=== PATIENT | female | born 1945 | race Caucasian/White ===

== ENCOUNTER 2024-11-03 14:38 | Emergency (ER) | payer OTHER ==
[~2024-11-03] VITALS: Ht 157.5 cm; Wt 85.4 kg
[2024-11-03] MEDS ORDERED: ketorolac trometh 15mg/ml vial 15 MG/ML ML IM ONE (16:00)
[2024-11-03] MEDS: cyclobenzaprine 10mg tablet PO ONE (16:04)
[2024-11-03] MEDS: ketorolac trometh 30MG/ML vial 30 MG/ML VIAL IM ONE (16:12)
[2024-11-03 16:23] LABS: BASOPHILS % (AUTO) 0.8 % (0-1); EOSINOPHILS # (AUTO) 0.1 X10'3 (0-0.9); EOSINOPHILS % (AUTO) 1.9 % (0-6); HEMATOCRIT 41.4 % (35.0-45.0); HEMOGLOBIN 13.6 g/dl (12.0-16.0); LYMPHOCYTES % (AUTO) 37.4 % (21-51); MEAN CORPUSCULAR HEMOGLOBIN 29.8 PG (27.0-31.0); MEAN CORPUSCULAR HGB CONC 32.9 g/dL (33.0-36.5); MEAN CORPUSCULAR VOLUME 90.5 FL (78-98); MEAN PLATELET VOLUME 7.7 FL (7.4-10.4); MONOCYTES # (AUTO) 0.7 X10'3 (0-0.9); MONOCYTES % (AUTO) 12.3 % (2-12); NEUTROPHILS # (AUTO) 2.5 X10'3 (1.8-7.7); NEUTROPHILS % (AUTO) 47.6 % (42-75); PLATELET COUNT 226 X10'3 (140-440); RED BLOOD COUNT 4.58 X10'6 (4.20-5.60); WHITE BLOOD COUNT 5.3 X10'3 (4.5-11.0)
--- NOTE | 2024-11-03 16:30 | RADIOLOGY REPORT ---
CHEST RADIOGRAPH Indication: Right chest wall pain Technique: Single frontal view of the chest was obtained Comparison: None FINDINGS: Lines and Tubes: None Lungs: No focal consolidation. Pleura: No effusion. No pneumothorax. Cardiomediastinal contours: Unremarkable Bones: No acute osseous abnormality. IMPRESSION: 1. No acute cardiopulmonary disease.
[2024-11-03 16:39] LABS: D-DIMER 1.12 MG/L FEU (0-0.50)
--- NOTE | 2024-11-03 16:52 | Physician Documentation ---
History of Present Illness ~ Chief Complaint: Rib pain Stated Complaint: PAIN UNDER R SHOULDER BLADE Time Seen by MD: 15:20 OK to notify your PCP?: Yes Source: patient Mode of Arrival: POV Exam Limitations: no limitations HPI This is a 78-year-old female who comes in for pain of her right mid back beneath the shoulder blade that is started a couple of days ago. The patient was visiting here from [place] and states that is two weeks ago she had a 48 hour flight from [place] to this area. She states that is she took one blood thinner prior to the flight because she has had clots in the past and wore compression stockings during the flight. She was not complaining of pain or swelling of the legs. She denies any known injury to the chest wall though she states that is she was pulling herself up into a trailer the couple of days ago not long before this pain began. The pain has a sharp stabbing pain in the right mid back that has worse with deep inspiration movement of the trunk. She denies hemoptysis. She denies significant shortness of breath and states the pain is very positional. She said she gets sharp spasm pain at times and says the pain in his currently 7/10 Tetanus within 5 Years?: No Allergies: Coded Allergies: No Known Allergies (Unverified , 11/03/24) Active Prescriptions See Medication Reconciliation Form. Physical Exam Vital Signs: Temperature: 98.0, Heart Rate: 75, Respiratory Rate: 16, BP: 169/78, Pulse Oximetry: 99, Weight: 85.400 Pulse Oximetry Reflects: adequate oxygenation General Appearance: alert, WD/WN, mild distress (The patient was in mild distress as she gets frequent spasms with the right mid back which she guards.) Cardiovascular No rubs, gallops or murmurs. No peripheral edema, cyanosis or clubbing of the extremities Respiratory No increased respiratory effort or retractions. Lungs are clear to auscultation in all white. Skin: normal color, warm/dry Progress Results/Orders Reviewed/noted all lab results: Yes Results/Orders Orders - FARHAD ALMAZAN Chest,Single View (11/03/24 16:17) Saline Lock (11/03/24 ) Cta Chest Pe (11/03/24 17:29) Completed Orders - FARHAD ALMAZAN Cyclobenzaprine Tablet (Flexeril Tablet) (11/03/24 16:00) Chest,Single View (11/03/24 16:17) Cbc/Diff (11/03/24 15:57) D-Dimer (11/03/24 15:57) Ketorolac Trometh 30mg/Ml Vial (Toradol (11/03/24 16:10) BMP (11/03/24 16:41) Cta Chest Pe (11/03/24 17:29) Iohexol 350mg/Ml 100ml (Omnipaque 350mg/ (11/03/24 17:18) Medications Received in ER Medications (Trade) Dose Ordered Sig/Jo-Ann Route PRN Reason Start Time Stop Time Status Last Admin Dose Admin (Flexeril tablet) 10 mg ONCE ONCE PO 11/03/24 16:00 11/03/24 16:01 DC 11/03/24 16:04 10 MG (Toradol inj. 30mg/ml) 30 mg ONCE ONCE IM 11/03/24 16:10 11/03/24 16:11 DC 11/03/24 16:12 30 MG Vital Signs 11/03/24 11/03/24 11/03/24 14:48 16:12 17:51 Temp 98.0 Pulse 75 Resp 16 16 16 B/P (MAP) 169/78 Pulse Ox 99 Laboratory Tests Test 11/03/24 16:11 White Blood Count 5.3 Red Blood Count 4.58 Hemoglobin 13.6 Hematocrit 41.4 Mean Corpuscular Volume 90.5 Mean Corpuscular Hemoglobin 29.8 Mean Corpuscular Hemoglobin Concent 32.9 L Red Cell Distribution Width 14.0 Platelet Count 226 Mean Platelet Volume 7.7 Neutrophils (%) (Auto) 47.6 Lymphocytes (%) (Auto) 37.4 Monocytes (%) (Auto) 12.3 H Eosinophils (%) (Auto) 1.9 Basophils (%) (Auto) 0.8 Neutrophils # (Auto) 2.5 Lymphocytes # (Auto) 2.0 Monocytes # (Auto) 0.7 Eosinophils # (Auto) 0.1 Basophils # (Auto) 0.0 CBC Comment D-Dimer 1.12 H D-Dimer Comment Sodium Level 144 Potassium Level 3.8 Chloride Level 106 Carbon Dioxide Level 27.0 Anion Gap 11 Blood Urea Nitrogen 22 H Creatinine 0.92 H Estimated GFR/1.73 m2 59 BUN/Creatinine Ratio 23.9 H Glucose Level 116 H Calcium Level 9.5 Albumin 4.1 Chemistry Comments EKG/XRAY/CT/US/VASC/MRI Chest X-Ray : Interpreted By: self Views: 1 VIEW Additional Comments Chest x-ray one view interpreted by me: No acute disease process. Cardiac silhouette and lung white are clear. No obvious acute bony abnormality. Soft tissues are unremarkable Medical Decision Making Findings Usually performed a chest x-ray which was negative and a D-dimer the clots given the fact the patient just flew 48 hours a couple of weeks ago and the D-dimer was elevated so we did a CTA of the chest with a pulmonary embolism protocol which fortunately was negative. I gave the patient injection of Toradol and Flexeril for her muscle spasm which is starting to help her symptoms. I am going to discharge her home with a prescription for a bursa prednisone 50 mg once a day for five days and Robaxin muscle relaxant. She can alternate heat and cold to the area and follow up with the primary care physician when she returns home or return to the ER any point for any worsening or acute issues. Additional Comment Chest wall pain. Costochondritis. Pleurisy. Intercostal muscle sprain strain. Thoracic radiculopathy. Rule out PE. Departure Disposition: HOME / SELF CARE / HOMELESS Impression: Primary Impression: Chest wall pain Condition: Stable Discharge Instructions: Chest Wall Pain Additional Instructions: Take the medications as prescribed. Alternate heat or cold with the area and try not to do anything that will worsen the pain. Follow up with the primary care physician for recheck in the next one or two days and return to the ER for any worsening or concerning symptoms. Referrals: NO PRIMARY CARE PROVIDER (PCP) Prescriptions Methocarbamol (Methocarbamol) 750 Mg Tablet 1 TAB PO Q8H for Muscle spasm, #20 TAB 0 Refills Prov: FARHAD ALMAZAN 11/03/24 Prednisone (Prednisone) 50 Mg Tablet 1 TAB PO DAILY for 5 Days, #5 TAB 0 Refills Prov: FARHAD ALMAZAN 11/03/24 Signature Scribe Signature: No scribe Attestation: The note accurately reflects work and decisions made by me.Farhad LIZARRAGA 11/03/24 18:08 FARHAD ALMAZAN November 03, 2024 16:52
[2024-11-03 17:06] LABS: ALBUMIN 4.1 G/DL (3.4-5.0); ANION GAP 11 (8-16); BLOOD UREA NITROGEN 22 MG/DL (7-18); BUN/CREATININE RATIO 23.9 (10.0-20.0); CALCIUM 9.5 MG/DL (8.5-10.1); CHLORIDE 106 MMOL/L (99-107); CREATININE 0.92 MG/DL (0.40-0.90); GLUCOSE 116 MG/DL (70-104); POTASSIUM 3.8 MMOL/L (3.5-5.1); SODIUM 144 MMOL/L (135-145); eCRCL 41 ML/MIN; eGFR 59 ML/MIN
[2024-11-03] MEDS ORDERED: iohexol 350MG/ML 100ml bottle IV ONE (17:18)
--- NOTE | 2024-11-03 17:48 | RADIOLOGY REPORT ---
CTA Chest with intravenous contrast INDICATION: Chest pain, shortness of breath with the elevated D-dimer COMPARISON: None TECHNIQUE: Multidetector spiral CTA of the chest was performed of the chest with intravenous contrast . PULMONARY ANGIOGRAPHY PROTOCOL was utilized using a bolus-tracking technique centered on the main p ulmonary artery. Axial, coronal and sagittal multiplanar and MIP reformats were performed. Radiation Dose : 1. Chest: CTDI volume is 18.6 mGy. Dose-length product is 725 mGy*cm The dose indicators for CT are the volume Computed Tomography (CT) Dose Index (CTDIvol) and the Dose Length Product (DLP), and are measured in units of mGy and mGy-cm, respectively. These indicators are not patient dose, but values generated from the CT scanner acquisition factors. The report includes radiation exposure data for exposures received during this examination. Findings: Pulmonary artery: No pulmonary embolism Lower neck: Normal thyroid. Lungs: No focal consolidation, pleural effusion or pneumothorax. Heart/Vascular Structures: Normal heart size. No pericardial effusion. Lymph Nodes: No adenopathy Pleura: No pleural effusion or significant pneumothorax. Musculoskeletal: No acute osseous abnormality. Soft tissues: Normal. Upper abdomen: Status post cholecystectomy. IMPRESSION: 1. No pulmonary embolism. 2. No acute thoracic finding.
[2024-11-03] MEDS ORDERED: PRED50TA PO (18:08)
[2024-11-03] MEDS ORDERED: METH-798 PO (18:08)
[2024-11-03 18:19] VITALS: BP 131/94; PULSE 60; RESP 16; TEMP 98; O2SAT 98
== END 2024-11-03 18:29 | disposition home or self-care (01) ==
LOC: ER 14:39
DX: R07.89 Other chest pain (principal)
CPT/HCPCS: 36415; 71045; 71275; 80048; 85025; 85379; 96372; 99285; J1885; Q9967